=== PATIENT | male | born 1995 | race Caucasian/White ===

== ENCOUNTER 2019-07-29 15:07 | Emergency (ER) | payer SELFPAY ==
[~2019-07-29] VITALS: Ht 170.2 cm; Wt 75.7 kg
--- NOTE | 2019-07-29 16:38 | NUR ---
NO ANSWER IN LOBBY.
[2019-07-29 17:21] LABS: BASOPHILS # (AUTO) 0.03 x10^3/uL (0-0.1); BASOPHILS % (AUTO) 0 % (0-1); EOSINOPHILS # (AUTO) 0.05 x10^3/uL (0-0.4); EOSINOPHILS % (AUTO) 1 % (1-7); LYMPHOCYTES # (AUTO) 1.29 x10^3/uL (1-3.4); LYMPHOCYTES % (AUTO) 12 % (22-44); MD NO; MEAN CORPUSCULAR HGB CONC 34.3 g/dL (33.2-36.2); MEAN CORPUSCULAR VOLUME 93.4 fL (81-97); MONOCYTES # (AUTO) 1.11 x10^3/uL (0.2-0.8); MONOCYTES % (AUTO) 10 % (2-9); NEUTROPHILS # (AUTO) 8.18 x10^3/uL (1.8-6.8); NEUTROPHILS % (AUTO) 77 % (42-75); PLATELET COUNT 324 x10^3/uL (130-400); RED BLOOD COUNT 4.87 x10^6/uL (4.38-5.82); RED CELL DISTRIBUTION WIDTH 12.4 % (9.4-14.8)
[2019-07-29 17:26] LABS: ANION GAP 7 mmol/L (5-15); CALCIUM 8.8 mg/dL (8.5-10.1); CHLORIDE 107 mmol/L (98-107); CREATININE 0.91 mg/dL (0.7-1.3)
--- NOTE | 2019-07-29 18:00 | NUR ---
[employer]: PT WALKED BACK FROM LOBBY TO ROOM. NAD NOTED.
[2019-07-29 18:09] VITALS: BP 123/72
--- NOTE | 2019-07-29 18:10 | NUR ---
PT C/O NASAL CONGESTION/PRESSURE X1 WEEK, GOT WORSE TODAY. YELLOW DISCHARGE. CONNECTED TO MONITORING. CALL [facility]I IN REACH. AWAITING FURTHER ORDERS.
[2019-07-29 19:14] LABS: RAPID INFLUENZA A Negative (Negative); RAPID INFLUENZA B Negative (Negative)
== END 2019-07-29 19:38 | disposition home or self-care (01) ==
LOC: ED 19:30
DX: J01.00 Acute maxillary sinusitis, unspecified (principal); R00.0 Tachycardia, unspecified
CPT/HCPCS: 36415; 70160; 71045; 80048; 85025; 87400; 93005; 99285